=== PATIENT | male | born 1955 | race Caucasian/White ===

== ENCOUNTER → 2018-01-12 | Outpatient (CLI) | payer OTHER | LOC: ROC 11:37 | PROVIDERS: ATTEND Radiology Radiation Oncology | DX: Z02.9 Encounter for administrative examinations, unspecified (principal) ==

== ENCOUNTER 2018-02-02 07:46 | Day surgery (SDC) | payer OTHER ==
[~2018-02-02] VITALS: Ht 175.3 cm; Wt 85.9 kg
[2018-02-02 08:34] VITALS: BP 136/81
[2018-02-02] MEDS ORDERED: SODIUM CHLORIDE 0.9% 1,000 ML IV SCH (08:36)
[2018-02-02] MEDS ORDERED: CEFAZOLIN PMX 1GM/50ML 50 ML IV ONE (09:00)
[2018-02-02] MEDS ORDERED: FENTANYL PF 100 MCG/2ML ONE (09:10)
[2018-02-02] MEDS ORDERED: MIDAZOLAM 1 MG/ML, 5ML ONE (09:10)
[2018-02-02] MEDS ORDERED: FLUMAZENIL 0.1 MG/1 ML, 5ML ONE (09:11)
[2018-02-02] MEDS ORDERED: NALOXONE 1 MG/ML, 2ML ONE (09:11)
[2018-02-02] MEDS ORDERED: LIDOCAINE 2%, 20ML ONE (09:11)
== END 2018-02-02 11:40 | disposition home or self-care (01) ==
LOC: OUT 07:46
PROVIDERS: ATTEND Internal Medicine Hematology & Oncology
DX: Z45.2 Encounter for adjustment and management of vascular access device (principal); C39.9 Malignant neoplasm of lower respiratory tract, part unspecified
CPT/HCPCS: 36561; 77001; 99156; 99157; C1788; J0690; J1642; J2250; J3010; J3490; J7030; J2310

== ENCOUNTER 2018-03-23 09:18 | Inpatient (IN) | payer OTHER ==
[~2018-03-23] VITALS: Ht 175.3 cm; Wt 72.2 kg
[2018-03-23] MEDS ORDERED: magnesium (09:50)
[2018-03-23] MEDS ORDERED: potassium (09:50)
[2018-03-23] MEDS ORDERED: LIDOCAINE-MPF 2% ,5ML ONE (10:00)
[2018-03-23] MEDS ORDERED: LIDOCAINE-MPF 1%, 5ML INFIL ONE (10:00)
[2018-03-23] MEDS ORDERED: LIDOCAINE-MPF 1%, 2ML ONE (10:04)
[2018-03-23 10:17] LABS: ANION GAP 6 mmol/L (5-15); CALCIUM 8.9 mg/dL (8.5-10.1); CHLORIDE 99 mmol/L (98-107); CREATININE 1.57 mg/dL (0.7-1.3)
[2018-03-23 10:27] LABS: MEAN CORPUSCULAR HEMOGLOBIN 32.2 pg (27.5-34.5); MEAN CORPUSCULAR HGB CONC 34.3 g/dL (33.2-36.2); MEAN CORPUSCULAR VOLUME 94.1 fL (81-97); MEAN PLATELET VOLUME 10.5 fL (7.4-10.4); PLATELET COUNT 86 x10^3/uL (130-400); RED BLOOD COUNT 4.37 x10^6/uL (4.38-5.82); RED CELL DISTRIBUTION WIDTH 14.8 % (9.4-14.8)
[2018-03-23 10:28] LABS: BASOPHILS # (AUTO) 0.01 x10^3/uL (0-0.1); BASOPHILS % (AUTO) 0 % (0-1); EOSINOPHILS # (AUTO) 0.03 x10^3/uL (0-0.4); EOSINOPHILS % (AUTO) 1 % (1-7); LYMPHOCYTES % (AUTO) 11 % (22-44); MD SCAN; MONOCYTES # (AUTO) 0.66 x10^3/uL (0.2-0.8); MONOCYTES % (AUTO) 15 % (2-9); NEUTROPHILS # (AUTO) 3.28 x10^3/uL (1.8-6.8); NEUTROPHILS % (AUTO) 73 % (42-75)
[2018-03-23] MEDS ORDERED: SODIUM CHLORIDE 0.9% 1,000ML IVBOLUS ONE (10:30)
[2018-03-23] MEDS ORDERED: SODIUM CHLORIDE FLUSH 10ML SYR IVF ONE (10:30)
[2018-03-23] MEDS ORDERED: OMNIPAQUE 350 MG/ML, 100ML BOTTLE ONE (12:08)
[2018-03-23] MEDS ORDERED: CEFOTETAN PMX 1GM/50ML 50 ML ONE (12:51)
[2018-03-23] MEDS ORDERED: METRONIDAZOLE PMX 500MG/100ML 100 ML ONE (12:51)
[2018-03-23] MEDS ORDERED: CEFOTETAN PMX 1GM/50ML 50 ML IV ONE (13:00)
[2018-03-23] MEDS ORDERED: METRONIDAZOLE PMX 500MG/100ML 100 ML IV ONE (13:00)
[2018-03-23] MEDS ORDERED: FENTANYL PF 250 MCG/5ML ONE (13:52)
[2018-03-23] MEDS ORDERED: MIDAZOLAM 1 MG/ML, 2ML ONE (13:52)
[2018-03-23] MEDS ORDERED: ONDANSETRON 2MG/ML, 2ML ONE (13:54)
[2018-03-23] MEDS ORDERED: PROPOFOL 10 MG/ML, 20ML ONE (13:54)
[2018-03-23] MEDS ORDERED: PROMETHAZINE 25 MG/ML, 1ML IV PRN (14:30)
[2018-03-23] MEDS ORDERED: ACETAMINOPHEN 325 MG TABLET PO PRN (14:30)
[2018-03-23] MEDS ORDERED: ALBUTEROL/IPRATROPIUM 2.5MG/0.5MG, 3 ML NPPB PRN (14:30)
[2018-03-23] MEDS ORDERED: DIPHENHYDRAMINE 50 MG/ML, 1ML IVPush PRN (14:30)
[2018-03-23] MEDS ORDERED: ONDANSETRON ODT 8 MG PO PRN (14:30)
[2018-03-23] MEDS ORDERED: MIDAZOLAM 1 MG/ML, 2ML IV PRN (14:30)
[2018-03-23] MEDS ORDERED: FENTANYL PF 100 MCG/2ML IV PRN (14:30)
[2018-03-23] MEDS ORDERED: EPHEDRINE 50 MG/ML, 1ML IM PRN (14:30)
[2018-03-23] MEDS ORDERED: MORPHINE SULFATE 4 MG/ML, 1ML IVPush PRN ×2 (14:30→15:30)
[2018-03-23] MEDS ORDERED: OXYcodone 5 MG/5 ML ORAL.SOL UDC PO PRN (14:30)
[2018-03-23] MEDS ORDERED: BUPIVACAINE/PF 0.5% ONE (14:33)
[2018-03-23] MEDS ORDERED: EPINEPHRINE 1 MG/ML, 1ML ONE (14:33)
[2018-03-23] MEDS: POTASSIUM CHLORIDE 20 MEQ in D5%-0.45% NACL 1,000 ML IV SCH ×2 (15:12→21:09)
[2018-03-23] MEDS ORDERED: ONDANSETRON 2MG/ML, 2ML IVPush PRN (15:30)
[2018-03-23] MEDS ORDERED: OXYcodone/APAP 7.5/325MG TABLET PO PRN (15:30)
[2018-03-23] MEDS ORDERED: OXYcodone/APAP 5/325MG TABLET PO PRN (15:30)
[2018-03-23 18:29] VITALS: BP 124/82
[2018-03-23 19:21] VITALS: BP 128/81
[2018-03-23] MEDS: METRONIDAZOLE PMX 500MG/100ML 100 ML IVPB SCH (22:29)
[2018-03-24] MEDS: CEFOTETAN PMX 1GM/50ML 50 ML IVPB SCH ×2 (00:43→12:38)
[2018-03-24 01:04] VITALS: BP 116/70
[2018-03-24 03:28] LABS: CLOSTRIDIUM DIFFICILE ANTIGEN POSITIVE; CLOSTRIDIUM DIFFICILE TOXIN NEGATIVE (Negative)
[2018-03-24] MEDS: METRONIDAZOLE PMX 500MG/100ML 100 ML IVPB SCH (06:05)
[2018-03-24 06:24] LABS: MEAN CORPUSCULAR HEMOGLOBIN 31.7 pg (27.5-34.5); MEAN CORPUSCULAR HGB CONC 33.5 g/dL (33.2-36.2); MEAN CORPUSCULAR VOLUME 94.6 fL (81-97); MEAN PLATELET VOLUME 12.3 fL (7.4-10.4); PLATELET COUNT 77 x10^3/uL (130-400); RED BLOOD COUNT 3.63 x10^6/uL (4.38-5.82)
[2018-03-24 06:25] LABS: BASOPHILS # (AUTO) 0.02 x10^3/uL (0-0.1); BASOPHILS % (AUTO) 0 % (0-1); EOSINOPHILS # (AUTO) 0.03 x10^3/uL (0-0.4); EOSINOPHILS % (AUTO) 1 % (1-7); LYMPHOCYTES # (AUTO) 0.41 x10^3/uL (1-3.4); LYMPHOCYTES % (AUTO) 10 % (22-44); MD MORPH REVIEW ONLY; MONOCYTES # (AUTO) 0.72 x10^3/uL (0.2-0.8); MONOCYTES % (AUTO) 18 % (2-9); NEUTROPHILS # (AUTO) 2.85 x10^3/uL (1.8-6.8); NEUTROPHILS % (AUTO) 71 % (42-75)
[2018-03-24 06:27] LABS: <PLATELET ESTIMATE> DECREASED; ANISOCYTOSIS 1+
[2018-03-24 06:28] LABS: LARGE PLATELETS 1+
[2018-03-24 07:15] VITALS: BP 103/63
[2018-03-24] MEDS ORDERED: maalox/diphenh/lido/sucralfate 5 ML PO PRN (09:00)
[2018-03-24] MEDS: POTASSIUM CHLORIDE 20 MEQ in D5%-0.45% NACL 1,000 ML IV SCH (12:38)
[2018-03-24 13:39] VITALS: BP 123/80
[2018-03-24 19:47] VITALS: BP 105/66
[2018-03-25] MEDS: POTASSIUM CHLORIDE 20 MEQ in D5%-0.45% NACL 1,000 ML IV SCH ×2 (02:54→11:00)
[2018-03-25 03:29] VITALS: BP 112/74
[2018-03-25 08:03] VITALS: BP 103/68
[2018-03-25 09:52] LABS: ALANINE AMINOTRANSFERASE 21 U/L (12-78); ALBUMIN 2.7 g/dL (3.4-5.0); ANION GAP 6 mmol/L (5-15); CALCIUM 7.6 mg/dL (8.5-10.1); CHLORIDE 105 mmol/L (98-107); CREATININE 1.11 mg/dL (0.7-1.3)
[2018-03-25 09:55] LABS: ALKALINE PHOSPHATASE 82 U/L (45-117); BILIRUBIN,TOTAL 0.3 mg/dL (0.2-1.0); TOTAL PROTEIN 6.1 g/dL (6.4-8.2)
[2018-03-25 10:30] LABS: BASOPHILS # (AUTO) 0.01 x10^3/uL (0-0.1); BASOPHILS % (AUTO) 0 % (0-1); EOSINOPHILS # (AUTO) 0.02 x10^3/uL (0-0.4); EOSINOPHILS % (AUTO) 1 % (1-7); LYMPHOCYTES # (AUTO) 0.33 x10^3/uL (1-3.4); LYMPHOCYTES % (AUTO) 13 % (22-44); MD SCAN; MEAN CORPUSCULAR HEMOGLOBIN 34.4 pg (27.5-34.5); MEAN CORPUSCULAR HGB CONC 35.4 g/dL (33.2-36.2); MEAN CORPUSCULAR VOLUME 97.4 fL (81-97); MEAN PLATELET VOLUME 10.5 fL (7.4-10.4); MONOCYTES # (AUTO) 0.36 x10^3/uL (0.2-0.8); MONOCYTES % (AUTO) 14 % (2-9); NEUTROPHILS # (AUTO) 1.91 x10^3/uL (1.8-6.8); NEUTROPHILS % (AUTO) 73 % (42-75); PLATELET COUNT 67 x10^3/uL (130-400); RED BLOOD COUNT 3.38 x10^6/uL (4.38-5.82); RED CELL DISTRIBUTION WIDTH 14.6 % (9.4-14.8)
[2018-03-25] MEDS ORDERED: AMOX1TAB64 PO (12:36)
== END 2018-03-25 13:26 | disposition home or self-care (01) | DRG 394 ==
LOC: ED 11:32 → OBSVTOIN 15:12 → EDIP 15:12 → 3NW 16:39
PROVIDERS: ADMIT Surgery; ATTEND Surgery
PROC: 0D9P3ZZ Drainage of Rectum, Percutaneous Approach (ICD-10-PCS; principal; 2018-03-23 14:30)
DX: K61.1 Rectal abscess (principal); L02.31 Cutaneous abscess of buttock; C31.9 Malignant neoplasm of accessory sinus, unspecified; F17.210 Nicotine dependence, cigarettes, uncomplicated; K62.89 Other specified diseases of anus and rectum; N32.9 Bladder disorder, unspecified; T45.1X5A Adverse effect of antineoplastic and immunosuppressive drugs, initial encounter; Y92.89 Other specified places as the place of occurrence of the external cause
CPT/HCPCS: 36415; 72193; 77386; 80048; 80053; 85025; 87070; 87075; 87205; 87324; 87493; 96361; 96365; J0171; J2250; J2405; J2704; J3010; J3480; J3490; Q9967; J7030; S0074

== ENCOUNTER → 2018-05-03 | Outpatient (CLI) | payer OTHER ==
[~2018-05-03] MED LIST: AMOX1TAB64 PO; MAGN400T36 PO; METR500T PO; magnesium; potassium
== END | disposition home or self-care (01) ==
LOC: ROC 07:41
PROVIDERS: ATTEND Radiology Radiation Oncology
DX: Z02.9 Encounter for administrative examinations, unspecified (principal)

== ENCOUNTER → 2018-06-22 | Outpatient (CLI) | payer OTHER | END | disposition home or self-care (01) | LOC: PETCFH 07:30 | PROVIDERS: ATTEND Internal Medicine Hematology & Oncology | DX: C30.0 Malignant neoplasm of nasal cavity (principal) | CPT/HCPCS: 78815; A9552 ==

== ENCOUNTER → 2018-12-21 | Outpatient (CLI) | payer OTHER ==
[~2018-12-21] MED LIST changes: +OMNIPAQUE 350 MG/ML, 100ML BOTTLE ONE
== END | disposition home or self-care (01) ==
LOC: CFH 11:26
PROVIDERS: ATTEND Internal Medicine Hematology & Oncology
DX: C30.0 Malignant neoplasm of nasal cavity (principal); J32.0 Chronic maxillary sinusitis; J34.2 Deviated nasal septum; M43.06 Spondylolysis, lumbar region; Z87.891 Personal history of nicotine dependence
CPT/HCPCS: 70486; 71260; 74177; Q9967

== ENCOUNTER → 2019-07-20 | Outpatient (CLI) | payer OTHER | END | disposition home or self-care (01) | LOC: CFH 12:31 | PROVIDERS: ATTEND Internal Medicine Hematology & Oncology | DX: C30.0 Malignant neoplasm of nasal cavity (principal); D14.31 Benign neoplasm of right bronchus and lung; M85.80 Other specified disorders of bone density and structure, unspecified site; M48.54XA Collapsed vertebra, not elsewhere classified, thoracic region, initial encounter for fracture; I70.0 Atherosclerosis of aorta; J43.8 Other emphysema; F17.200 Nicotine dependence, unspecified, uncomplicated; Z85.828 Personal history of other malignant neoplasm of skin | CPT/HCPCS: 70486; 71260; Q9967 ==